=== PATIENT | female | born 1985 | race African-American/Black ===

== ENCOUNTER 2021-01-24 11:36 | Emergency (ER) | payer SELFPAY ==
[~2021-01-24] VITALS: Ht 160 cm; Wt 72.7 kg
[2021-01-24] MEDS ORDERED: HYDROcodone/APAP 5/325MG 1 TAB TABLET PO ONE ×2 (12:00→13:45)
--- NOTE | 2021-01-24 12:10 | EKG ---
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
--- NOTE | 2021-01-24 12:12 | RAD ---
Exam Date: 01/24/2021 12:00 PM XR CHEST 1V Indication: Reason: CHEST PAIN / Spl. Instructions: / History: . FINDINGS/ IMPRESSION: The cardiac silhouette and pulmonary vasculature are within normal limits. There is no focal consolidation, pleural effusion or pneumothorax. The visualized osseous structures are intact. Electronically signed by: Salo Bueno MD (01/24/2021 12:10 PM) [id number]
--- NOTE | 2021-01-24 12:49 | PHYS DOC ---
Past History Past Surgical History: (RHINA LIM APRN) General Adult EDM: Chief Complaint: CHEST PAIN HPI: HPI: Patient is a 35-year-old female presents with chest pain and complaints of pain all over. Patient states "I feel achy in all of my joints". "I took a bath last night which helped but sitting or laying makes the achiness worse". Patient took a Tylenol at 8 AM with little relief. Denies nausea/vomiting/diarrhea. Denies fever. Denies recent illness. (RHINA LIM APRN) Review of Systems: Review of Systems: ROS At least 10 ROS systems have been reviewed and are negative except as documented in the HPI. General: Negative except as outlined in HPI above. Skin: Negative except as outlined in HPI above. HEENT: Negative except as outlined in HPI above. Neck: Negative except as outlined in HPI above. Respiratory: Negative except as outlined in HPI above.. Cardiovascular: Negative except as outlined in HPI above. Abdomen: Negative except as outlined in HPI above. : Negative except as outlined in HPI above. Back/MSK: Negative except as outlined in HPI above. Neuro: Negative except as outlined in HPI above. Psych: Negative except as outlined in HPI above. (RHINA LIM APRN) Current Medications: Current Meds: Current Medications Medications (Trade) Dose Ordered Sig/Giovanny Start Time Stop Time Status Last Admin Dose Admin Acetaminophen/ Hydrocodone Bitart (Lortab 5/325) 1 tab 1X ONCE 01/24/21 12:00 01/24/21 12:02 DC 01/24/21 12:17 1 TAB (RHINA LIM APRN) Allergies: Allergies: Allergies Coded Allergies Type Severity Reaction Last Updated Verified No Known Drug Allergies 01/24/21 No (RHINA LIM APRN) Physical Exam: PE: Constitutional: Well developed, well nourished, no acute distress, non-toxic appearance. [] HENT: Normocephalic, atraumatic, bilateral external ears normal, oropharynx moist, no oral exudates, nose normal. [] Eyes: PERRLA, EOMI, conjunctiva normal, no discharge. [] Neck: Normal range of motion, no tenderness, supple, no stridor. [] Cardiovascular:Heart rate regular rhythm, no murmur [] Lungs & Thorax: Bilateral breath sounds clear to auscultation [] Abdomen: Bowel sounds normal, soft, no tenderness, no masses, no pulsatile masses. [] Skin: Warm, dry, no erythema, no rash. [] Back: No tenderness, no CVA tenderness. [] Extremities: No tenderness, no cyanosis, no clubbing, ROM intact, no edema. [] Neurologic: Alert and oriented X 3, normal motor function, normal sensory function, no focal deficits noted. [] Psychologic: Affect normal, judgement normal, mood normal. [] (RHINA LIM APRN) Current Patient Data: Labs: Laboratory Tests Test 01/24/21 11:52 01/24/21 12:07 Troponin I Quantitative < 0.017 ng/mL (0-0.055) POC Urine HCG, Qualitative hcg negative (Negative) Vital Signs: Vital Signs Date Time Temp Pulse Resp B/P (MAP) Pulse Ox O2 Delivery O2 Flow Rate FiO2 01/24/21 11:46 93 18 96/70 99 (RHINA LIM APRN) EKG: EKG: [] (RHINA LIM APRN) Radiology/Procedures: Radiology/Procedures: []Exam Date: 01/24/2021 12:00 PM XR CHEST 1V Indication: Reason: CHEST PAIN / Spl. Instructions: / History: . FINDINGS/ IMPRESSION: The cardiac silhouette and pulmonary vasculature are within normal limits. There is no focal consolidation, pleural effusion or pneumothorax. The visualized osseous structures are intact. Electronically signed by: Salo Bueno MD (01/24/2021 12:10 PM) [id number] (RHINA LIM APRN) Heart Score: C/O Chest Pain: No Risk Factors: Risk Factors: DM, Current or recent (<one month) smoker, HTN, HLP, family history of CAD, obesity. Risk Scores: Score 0 - 3: 2.5% MACE over next 6 weeks - Discharge Home Score 4 - 6: 20.3% MACE over next 6 weeks - Admit for Clinical Observation Score 7 - 10: 72.7% MACE over next 6 weeks - Early Invasive Strategies (RHINA LIM APRN) Course & Med Decision Making: Course & Med Decision Making Pertinent Labs and Imaging studies reviewed. (See chart for details) [] 35-year-old female presents with chest pain and achiness all over. Patient states that her achiness feels like she has been running a fever. Denies recent illness. Patient is afebrile. Hemodynamically stable. Troponin negative. EKG normal sinus rhythm. Chest x-ray unremarkable. Discussed results with patient. Patient is reporting she is still in pain. Patient given 5/325 hydrocodone, 600 mg Motrin. Advised patient to continue Ultram between ibuprofen and Tylenol at home. Call PCP to make a follow-up appointment. Strict return precautions given. Patient states that she understands discharge instructions. Patient is hemodynamically stable upon disposition. (RHINA LIM APRN) Course & Med Decision Making I was the Attending physician on the above date of service of this patient. This patient was evaluated, examined, treated, and dispositioned from the emergency department by the mid-level practitioner. Although I was working at the time , no assistance was requested. Electronically signed, Carolyn Wallace DO (CAROLYN WALLACE DO) Aneesh Disclaimer: Aneesh Disclaimer: This electronic medical record was generated, in whole or in part, using a voice recognition dictation system. (RHINA LIM APRN) Departure Departure: Impression: Primary Impression: Chest pain of unknown etiology Disposition: HOME / SELF CARE / HOMELESS Condition: STABLE Referrals: PCP,NO (PCP) Patient Instructions: Chest Pain (Nonspecific), [id number] Additional Instructions: You were seen in the emergency room for chest pain and all over body aches. EKG and chest x-ray was unremarkable. Labs were unremarkable. You were given hydrocodone and Motrin to help with pain. Alternate between Tylenol and Motrin at home for chills and body aches. Please return to the emergency room if you have worsening symptoms or concerns. Otherwise, please follow-up with your PCP. EMERGENCY DEPARTMENT GENERAL DISCHARGE INSTRUCTIONS Thank you for coming to [facility] (ED) today and trusting us with you care. We trust that you had a positivie experience in our Emergency Department. If you wish to speak to the department management, you may call the director at [phone]. YOUR FOLLOW UP INSTRUCTIONS ARE FOLLOWS: 1. Do you have a private Doctor? If you do not have a private doctor, please ask for a resource list of physicians or clinics that may be able to assist you with follow up care. 2. The Emergency Physician has interpreted your x-rays. The X-Ray specialist will also review them. If there is a change in the findings, you will be notified in 48 hours when at all possible. 3. A lab test or culture has been done, your results will be reviewed and you will be notified if you need a change in treatment. ADDITIONAL INSTRUCTIONS AND INFORMATION: 1. Your care today has been supervised by a physician who is specially trained in emergency care. Many problems require more than one evaluation for a complete diagnosis and treatment. We recommend that you schedule your follow up appointment as recommended to ensure complete treatment of you illness or injury. If you are unable to obtain follow up care and continue to have a problem, or if your condition worsens, we recommend that you return to the ED. 2. We are not able to safely determine your condition over the phone nor are we able to give sound medical advice over the phone. For these safety reasons, if you call for medical advice we will ask you to come to the ED for further evaluation. 3. If you have any questions regarding these discharge instructions please call the ED at [phone]. SAFETY INFORMATION: In the interest of safety, wellness, and injury prevention; we encourage you to wear your sealbelt, if you smoke; quite smoking, and we encourage family to use a protective helmet for bicycling and other sporting events that present an increased risk for head injury. IF YOUR SYMPTOMS WORSEN OR NEW SYMPTOMS DEVELOP, OR YOU HAVE CONCERNS ABOUT YOUR CONDITION; OR IF YOUR CONDITION WORSENS WHILE YOU ARE WAITING FOR YOUR FOLLOW UP APPO INTMENT; EITHER CONTACT YOUR PRIMARY CARE DOCTOR, THE PHYSICIAN WHOSE NAME AND NUMBER YOU WERE GIVEN, OR RETURN TO THE ED IMMEDIATELY. RHINA LIM APRN Jan 24, 2021 12:49 CAROLYN WALLACE DO Jan 25, 2021 06:15
[2021-01-24] MEDS ORDERED: IBUPROFEN 600 MG TABLET. PO ONE (13:45)
[2021-01-24 13:54] VITALS: BP 103/68
== END 2021-01-24 13:55 | disposition home or self-care (01) ==
LOC: ER 11:36
DX: U07.1 COVID-19 (principal); R07.89 Other chest pain
CPT/HCPCS: 36415; 71045; 81025; 84484; 93005; 99285; C9803; U0003

== ENCOUNTER 2021-09-24 02:59 | Emergency (ER) | payer MEDICAID, OTHER ==
[~2021-09-24] VITALS: Ht 160 cm; Wt 74.3 kg
[2021-09-24] MEDS ORDERED: HYDR-2759 PO (03:34)
[2021-09-24] MEDS ORDERED: PRED-220 PO (03:34)
--- NOTE | 2021-09-24 03:34 | PHYS DOC ---
Past History Past Surgical History: General Adult EDM: Chief Complaint: BACK PAIN OR INJURY HPI: HPI: 35-year-old female presents with right low back pain. The patient fell down a few stairs yesterday. She stayed in bed most of the day today. She has tried i buprofen and Tylenol at home without relief. She does have a tough time sleeping so she came into the emergency room at 3:00 in the morning. She denies loss of bowel or bladder. She is able to walk and ambulate. She denies any numbness, tingling, or altered sensation. She denies any other injuries at this time. Review of Systems: Review of Systems: Constitutional: Denies fever or chills Eyes: Denies change in visual acuity HENT: Denies nasal congestion or sore throat Respiratory: Denies cough or shortness of breath Cardiovascular: Denies chest pain or edema GI: Denies abdominal pain, nausea, vomiting, bloody stools or diarrhea : Denies dysuria Musculoskeletal: Right low back pain Integument: Denies rash Neurologic: Denies headache, focal weakness or sensory changes Endocrine: Denies polyuria or polydipsia Lymphatic: Denies swollen glands Psychiatric: Denies depression or anxiety Allergies: Allergies: Allergies Coded Allergies Type Severity Reaction Last Updated Verified No Known Drug Allergies 01/24/21 No Physical Exam: PE: Constitutional: Well developed, well nourished, obese, no acute distress, non- toxic appearance. [] HENT: Normocephalic, atraumatic, bilateral external ears normal, oropharynx moist, no oral exudates, nose normal. [] Eyes: PERRLA, EOMI, conjunctiva normal, no discharge. [] Neck: Normal range of motion, no tenderness, supple, no stridor. [] Cardiovascular:Heart rate regular rhythm, no murmur [] Lungs & Thorax: Bilateral breath sounds clear to auscultation [] Abdomen: Bowel sounds normal, soft, no tenderness, no masses, no pulsatile m asses. [] Skin: Warm, dry, no erythema, no rash. [] Back: Tenderness around the right sacroiliac joint. [] Extremities: No tenderness, no cyanosis, no clubbing, ROM intact, no edema. [] Neurologic: Alert and oriented X 3, normal motor function, normal sensory function, no focal deficits noted. [] Psychologic: Affect normal, judgement normal, mood normal. [] EKG: EKG: [] Radiology/Procedures: Radiology/Procedures: [] Heart Score: C/O Chest Pain: N/A Risk Factors: Risk Factors: DM, Current or recent (<one month) smoker, HTN, HLP, family history of CAD, obesity. Risk Scores: Score 0 - 3: 2.5% MACE over next 6 weeks - Discharge Home Score 4 - 6: 20.3% MACE over next 6 weeks - Admit for Clinical Observation Score 7 - 10: 72.7% MACE over next 6 weeks - Early Invasive Strategies Course & Med Decision Making: Course & Med Decision Making Pertinent Labs and Imaging studies reviewed. (See chart for details) The patient appears to have a strain of the right sacroiliac joint. She has surrounding paraspinal spasm. I will treat her with prednisone and [place] in the emergency room. I will send a short course of both of these to her pharmacy. She is stable for discharge at this time. [] Aneesh Disclaimer: Aneesh Disclaimer: This electronic medical record was generated, in whole or in part, using a voice recognition dictation system. Departure Departure: Impression: Primary Impression: Pain of right sacroiliac joint Disposition: HOME / SELF CARE / HOMELESS Condition: STABLE Referrals: PCPBARRIE (PCP) Patient Instructions: Sacroiliac Joint Dysfunction Scripts Prednisone (PREDNISONE) 10 Mg Tablet 50 MG PO DAILY for low back pain for 3 Days, #15 TAB Prov: TIFFANIE READ DO 09/24/21 Hydrocodone/Acetaminophen (Hydrocodone-Acetamin 5-325 mg) 1 Each Tablet 1 EACH PO Q4-6HRS PRN for PAIN, #10 TAB Prov: TIFFANIE READ DO 09/24/21 TIFFANIE READ DO September 24, 2021 03:34
[2021-09-24 03:52] VITALS: BP 110/72
[2021-09-24] MEDS ORDERED: predniSONE 20 MG TABLET PO ONE (04:00)
[2021-09-24] MEDS ORDERED: HYDROcodone/APAP 5/325MG 1 TAB TABLET PO ONE (04:00)
== END 2021-09-24 03:54 | disposition home or self-care (01) ==
LOC: ER 02:59
DX: M53.3 Sacrococcygeal disorders, not elsewhere classified (principal); M54.59 Other low back pain; Z98.890 Other specified postprocedural states
CPT/HCPCS: 99283; J7512

== ENCOUNTER 2021-09-24 17:32 | Emergency (ER) | payer MEDICAID, OTHER ==
[~2021-09-24] VITALS: Ht 160 cm; Wt 74.3 kg
[~2021-09-24 17:32] MED LIST: HYDR-2759 PO; PRED-220 PO
[2021-09-24 17:39] VITALS: BP 138/72
--- NOTE | 2021-09-24 17:59 | PHYS DOC ---
Past History Past Surgical History: (BUBBA HARRIS APRN) Alcohol Use: None (BUBBA HARRIS APRN) General Adult EDM: Chief Complaint: BACK PAIN OR INJURY HPI: HPI: Patient is a 35-year-old female who presents to the emergency department for right lower back pain. Patient reports that yesterday she tripped over her foot and did fall down some stairs. She was evaluated in this emergency department yesterday diagnosed with sciatica and discharged home with pain medication and a steroid. Patient rates her pain 10 out of 10. She denies any loss of bowel or bladder, saddle anesthesias. She is able to bear weight and ambulate with steady gait. She reports that she has been taking the prednisone and Lortab at home and does have some relief in her symptoms but wants to "know what is wrong with her back". (BUBBA HARRIS APRN) Review of Systems: Review of Systems: GI: See HPI : See HPI Musculoskeletal: See HPI Neurologic: See HPI (BUBBA HARRIS APRN) Allergies: Allergies: Allergies Coded Allergies Type Severity Reaction Last Updated Verified No Known Drug Allergies 01/24/21 No (BUBBA HARRIS APRN) Physical Exam: PE: Constitutional: Well developed, well nourished, no acute distress, non-toxic appearance. [] HENT: Normocephalic, atraumatic, bilateral external ears normal, oropharynx moist, no oral exudates, nose normal. [] Eyes: PERRL, EOMI, conjunctiva normal, no discharge. [] Neck: Normal range of motion, no tenderness, supple, no stridor. [] Cardiovascular: Normal peripheral perfusion Lungs & Thorax: Normal work of breathing, no tachypnea Abdomen: Soft and flat Skin: Warm, dry, no erythema, no rash. [] Back: No tenderness, right lower paraspinal tenderness with palpation, positive right straight leg raise Extremities: No tenderness, no cyanosis, no clubbing, ROM intact, no edema. [] Neurologic: Alert and oriented X 3, normal motor function, normal sensory function, no focal deficits noted. [] Psychologic: Affect normal, judgement normal, mood normal. [] (BUBBA HARRIS APRN) Current Patient Data: Labs: Laboratory Tests Test 09/24/21 17:40 09/24/21 18:28 09/24/21 19:07 09/24/21 20:15 Bedside Urine HCG, Qualitative hcg negative hcg negative Urine Collection Type Clean catch Urine Color Yellow Urine Clarity Clear Urine pH 5.5 Urine Specific [place] >=1.030 Urine Protein Neg Urine Glucose (UA) Neg mg/dL Urine Ketones (Stick) 40 mg/dL Urine Blood Mod Urine Nitrite Neg Urine Bilirubin Small Urine Urobilinogen Dipstick 0.2 mg/dL Urine Leukocyte Esterase Neg Urine RBC 1-2 /HPF Urine WBC 0 /HPF Urine Squamous Epithelial Cells Few /LPF Urine Bacteria 0 /HPF White Blood Count 8.0 x10^3/uL Red Blood Count 4.45 x10^6/uL Hemoglobin 13.6 g/dL Hematocrit 40.8 % Mean Corpuscular Volume 92 fL Mean Corpuscular Hemoglobin 31 pg Mean Corpuscular Hemoglobin Concent 33 g/dL Red Cell Distribution Width 13.4 % Platelet Count 290 x10^3/uL Neutrophils (%) (Auto) 66 % Lymphocytes (%) (Auto) 25 % Monocytes (%) (Auto) 9 % Eosinophils (%) (Auto) 0 % Basophils (%) (Auto) 1 % Neutrophils # (Auto) 5.3 x10^3uL Lymphocytes # (Auto) 2.0 x10^3/uL Monocytes # (Auto) 0.7 x10^3/uL Eosinophils # (Auto) 0.0 x10^3/uL Basophils # (Auto) 0.0 x10^3/uL Sodium Level 136 mmol/L Potassium Level 3.7 mmol/L Chloride Level 102 mmol/L Carbon Dioxide Level 21 mmol/L Anion Gap 13 Blood Urea Nitrogen 15 mg/dL Creatinine 0.8 mg/dL Estimated GFR (Cockcroft-Gault) 100.0 BUN/Creatinine Ratio 19 Glucose Level 87 mg/dL Calcium Level 9.2 mg/dL Total Bilirubin 0.4 mg/dL Aspartate Amino Transf (AST/SGOT) 15 U/L Alanine Aminotransferase (ALT/SGPT) 20 U/L Alkaline Phosphatase 63 U/L Total Protein 8.0 g/dL Albumin 3.4 g/dL Albumin/Globulin Ratio 0.7 Current Medications Medications (Trade) Dose Ordered Sig/Giovanny Route PRN Reason Start Time Stop Time Status Last Admin Dose Admin Ketorolac Tromethamine (Toradol Im) 60 mg 1X ONCE IM 09/24/21 18:00 09/24/21 18:01 DC 09/24/21 18:03 Orphenadrine Citrate (Norflex) 60 mg 1X ONCE IM 09/24/21 18:00 09/24/21 18:01 DC 09/24/21 18:03 Vital Signs: Vital Signs Date Time Temp Pulse Resp B/P (MAP) Pulse Ox O2 Delivery O2 Flow Rate FiO2 09/24/21 17:39 98.0 82 16 138/72 (94) 100 Room Air (BUBBA HARRIS APRN) EKG: EKG: [] (BUBBA HARRIS APRN) Radiology/Procedures: Radiology/Procedures: []PROCEDURE: CT LUMBAR SPINE WO CONTRAST Exam: CT the lumbar spine without contrast INDICATION: Fall, Back pain TECHNIQUE: Sequential axial images through the lumbar spine obtained without IV contrast. Sagittal and coronal reformatted images were reconstructed from the axial data and reviewed. Exposure: One or more of the following in the visualized dose reduction techniques were utilized for this examination: 1. Automated exposure control 2. Adjustment of the MA and/or KV according to patient size 3. Use of iterative of reconstructive technique Comparisons: None FINDINGS: Vertebral body heights and alignment are well-maintained. Fracture through the lumbar spine is not identified. No significant spondylotic changes lumbar spine. Diffuse haziness in the retroperitoneum and mesenteric fat. IMPRESSION: 1. Diffuse haziness in the retroperitoneum and mesenteric fat which is nonspecific. Correlate for causes including volume overload. The absence of known cause in the setting of trauma CT of the abdomen and pelvis with contrast is recommended to further evaluate. 2. No acute fracture identified at the lumbar spine. Electronically signed by: Delisa Voss MD (09/24/2021 6:49 PM) LOCATED WITHIN [facility] DICTATED AND SIGNED BY: DELISA VOSS MD DATE: 09/24/211845 CC: BUBBA HARRIS APRN; PCP,NO ~ PROCEDURE: CT ABDOMEN PELVIS WO CONTRAST Exam: CT of abdomen and pelvis without contrast INDICATION: Back pain, Back pain TECHNIQUE: Sequential axial images through the abdomen and pelvis obtained without IV contrast. Sagittal and coronal reformatted images were reconstructed from the axial data and reviewed. Exposure: One or more of the following in the visualized dose reduction te chniques were utilized for this examination: 1. Automated exposure control 2. Adjustment of the MA and/or KV according to patient size 3. Use of iterative of reconstructive technique Comparisons: CT lumbar spine same day FINDINGS: Heart size is normal. No pericardial effusion. Visualized lung bases are clear. No pleural effusion. Evaluation solid organs limited secondary to noncontrast technique. Liver, spleen, pancreas, gallbladder and adrenals are unremarkable. No hydronephrosis. No renal or ureteral calculi are identified. Bladder is decompressed not well evaluated. Uterus not enlarged. No abnormal adnexal mass. Large and small bowel are unremarkable. Appendix is not identified. There is a small amount of free fluid noted predominantly at the right paracolic gutter and pelvis. There is diffuse edema noted throughout the retroperitoneum. Abdominal aorta has normal course and caliber. No enlarged abdominal lymph nodes are identified. No suspicious osseous lesions or acute fractures. IMPRESSION: Extensive retroperitoneal edema and a small amount of intra-abdominal fluid predominantly along the right paracolic gutter extending into the pelvis. A definite cause is not identified. Recommend correlation for abnormal labs/urinalysis Electronically signed by: Delisa Voss MD (09/24/2021 7:39 PM) LOCATED [facility] DICTATED AND SIGNED BY: DELISA VOSS MD DATE: 09/24/211918 (BUBBA HARRIS APRN) Heart Score: C/O Chest Pain: N/A Risk Factors: Risk Factors: DM, Current or recent (<one month) smoker, HTN, HLP, family history of CAD, obesity. Risk Scores: Score 0 - 3: 2.5% MACE over next 6 weeks - Discharge Home Score 4 - 6: 20.3% MACE over next 6 weeks - Admit for Clinical Observation Score 7 - 10: 72.7% MACE over next 6 weeks - Early Invasive Strategies (BUBBA HARRIS APRN) Course & Med Decision Making: Course & Med Decision Making Pertinent Labs and Imaging studies reviewed. (See chart for details) [] Patient resents to the emergency department following a fall. Patient was evaluated this emergency department yesterday for the same symptoms and was discharged home with a steroid and pain medication. Patient is CT scan performed of her lumbar spine. She has no cauda equina symptoms. Patient was treated with a muscle relaxer and Toradol. Following treatment in the emergency department, patient reports improvement in her pain in her back. Patient CT imaging of her lumbar spine shows diffuse haziness in the retroperitoneum and mesenteric fat which is nonspecific, the radiologist recommended CT imaging of abdomen and pelvis. Consulted physician. This was performed and found extensive retroperitoneal edema along the right paracolic gutter extending into the pelvis and recommended labs and a UA. Patient had unremarkable work-up. She had no urinary tract infection and had normal kidney function. Patient is advised to follow-up with her primary care marylin zhu regarding this CT imaging report. She is advised to continue take the medications that was previously prescribed for her. I discussed with patient all findings and diagnostic testing as well as the need to follow-up with PCP for further evaluation and treatment or return to the ER if any new or worsening symptoms. Strict return precautions were also discussed at length. Patient voiced understanding and agreement with the plan. Patient is hemodynamically stable at the time of disposition. (BUBBA HARRIS APRN) Dragon Disclaimer: Dragon Disclaimer: This electronic medical record was generated, in whole or in part, using a voice recognition dictation system. (BUBBA HARRIS APRN) Attending Co-Sign The patient was seen and interviewed as well as examined at the bedside. The chart was reviewed. The case was discussed. Agree with the plan of care. (TIFFANIE READ DO) Departure Departure: Impression: Primary Impression: Back pain Qualified Codes: M54.41 - Lumbago with sciatica, right side Disposition: 01 HOME / SELF CARE / HOMELESS Condition: GOOD Referrals: PCP,NO (PCP) Patient Instructions: Back Pain, Adult Additional Instructions: You were seen in the emergency department today for back pain. There is no acu te fracture of your lumbar spine. Please see attached CT report of your abdomen and pelvis and please follow-up with your primary care provider regarding these findings. Your lab results were unremarkable. Continue taking the medication previously prescribed for you for your back pain. Follow-up with your primary care provider tomorrow regarding your ER visit and the CT imaging report. If you do not have a primary care provider, you can follow-up with 1 attached to your discharge paperwork. Return to the emergency department if you develop worsening of your back pain, abdominal pain, intractable nausea vomiting, high fevers refractory to treatment, loss of bowel or bladder, numbness or tingling in your groin or down your legs. BUBBA HARRIS APRN September 24, 2021 17:59 TIFFANIE READ DO September 25, 2021 05:23
[2021-09-24] MEDS ORDERED: KETOROLAC 60 MG/2 ML VIAL. IM ONE (18:00)
[2021-09-24] MEDS ORDERED: ORPHENADRINE CITRATE 60 MG/2 ML VIAL. IM ONE (18:00)
--- NOTE | 2021-09-24 18:51 | RAD ---
Exam: CT the lumbar spine without contrast INDICATION: Fall, Back pain TECHNIQUE: Sequential axial images through the lumbar spine obtained without IV contrast. Sagittal an d coronal reformatted images were reconstructed from the axial data and reviewed. Exposure: One or more of the following in the visualized dose reduction techniques were utilized for this examination: 1. Automated exposure control 2. Adjustment of the MA and/or KV according to patient size 3. Use of iterative of reconstructive technique Comparisons: None FINDINGS: Vertebral body heights and alignment are well-maintained. Fracture through the lumbar spine is not identified. No significant spondylotic changes lumbar spine. Diffuse haziness in the retroperitoneum and mesenteric fat. IMPRESSION: 1. Diffuse haziness in the retroperitoneum and mesenteric fat which is nonspecific. Correlate for ca uses including volume overload. The absence of known cause in the setting of trauma CT of the abdomen and pelvis with contrast is recommended to further evaluate. 2. No acute fracture identified at the lumbar spine. Electronically signed by: Delisa Pryor MD (09/24/2021 6:49 PM) [facility]
--- NOTE | 2021-09-24 19:42 | RAD ---
Exam: CT of abdomen and pelvis without contrast INDICATION: Back pain, Back pain TECHNIQUE: Sequential axial images through the abdomen and pelvis obtained without IV contrast. Sagit clarita and coronal reformatted images were reconstructed from the axial data and reviewed. Exposure: One or more of the following in the visualized dose reduction techniques were utilized for this examination: 1. Automated exposure control 2. Adjustment of the MA and/or KV according to patient size 3. Use of iterative of reconstructive technique Comparisons: CT lumbar spine same day FINDINGS: Heart size is normal. No pericardial effusion. Visualized lung bases are clear. No pleural effusion. Evaluation solid organs limited secondary to noncontrast technique. Liver, spleen, pancreas, gallbladder and adrenals are unremarkable. No hydronephrosis. No renal or ureteral calculi are identified. Bladder is decompressed not well evaluated. Uterus not enlarged. No abnormal adnexal mass. Large and small bowel are unremarkable. Appendix is not identified. There is a small amount of free f luid noted predominantly at the right paracolic gutter and pelvis. There is diffuse edema noted throu ghout the retroperitoneum. Abdominal aorta has normal course and caliber. No enlarged abdominal lymph nodes are identified. No suspicious osseous lesions or acute fractures. IMPRESSION: Extensive retroperitoneal edema and a small amount of intra-abdominal fluid predominantly along the r ight paracolic gutter extending into the pelvis. A definite cause is not identified. Recommend correl ation for abnormal labs/urinalysis Electronically signed by: Delisa Pryor MD (09/24/2021 7:39 PM) [facility]
[2021-09-24 20:08] LABS: BACTERIA,URINE 0 /HPF (0-FEW); CLARITY,URINE CLEAR; COLOR,URINE YELLOW; GLUCOSE,URINE NEG (NEG); NITRITE,URINE NEG (NEG); SQUAMOUS EPITHELIAL CELL,UR FEW /LPF; UROBILINOGEN,URINE 0.2 mg/dL (0.2 mg/dL); WBC,URINE 0 /HPF (0-4)
[2021-09-24 20:36] LABS: BASO % 1 % (0-3); EOS % 0 % (0-3); HEMATOCRIT 40.8 % (36.0-47.0); HEMOGLOBIN 13.6 g/dL (12.0-15.5); LYMPH % 25 % (24-48); MEAN CORPUSCULAR HEMOGLOBIN 31 pg (25-35); MEAN CORPUSCULAR HGB CONC 33 g/dL (31-37); MEAN CORPUSCULAR VOLUME 92 fL (79-100); MONO # 0.7 x10^3/uL (0.0-1.1); MONO % 9 % (0-9); NEUT # 5.3 x10^3uL (1.8-7.7); NEUT % 66 % (31-73); PLATELET COUNT 290 x10^3/uL (140-400); RED BLOOD COUNT 4.45 x10^6/uL (3.50-5.40); RED CELL DISTRIBUTION WIDTH 13.4 % (11.5-14.5)
[2021-09-24 20:43] LABS: CALCIUM 9.2 mg/dL (8.5-10.1); CREATININE 0.8 mg/dL (0.6-1.0); POTASSIUM 3.7 mmol/L (3.5-5.1)
[2021-09-24 20:49] LABS: ALBUMIN 3.4 g/dL (3.4-5.0); ALBUMIN/GLOBULIN RATIO 0.7 (1.0-1.7); TOTAL BILIRUBIN 0.4 mg/dL (0.2-1.0)
== END 2021-09-24 21:20 | disposition home or self-care (01) ==
LOC: ER 17:32
DX: M54.41 Lumbago with sciatica, right side (principal)
CPT/HCPCS: 36415; 72131; 74176; 80053; 81001; 81025; 85025; 96372; 99284; J1885; J2360